=== PATIENT | female | born 1985 | race Caucasian/White ===

== ENCOUNTER → 2016-06-14 | Outpatient (CLI) | payer OTHER ==
[2016-06-15 07:45] LABS: ESTRADIOL <5.0 pg/mL (.); PROGESTERONE <0.1 ng/mL (.)
== END ==
LOC: OD 08:11
PROVIDERS: ATTEND Obstetrics & Gynecology Reproductive Endocrinology
DX: N97.9 Female infertility, unspecified (principal); E34.9 Endocrine disorder, unspecified
CPT/HCPCS: 36415; 82670; 84144

== ENCOUNTER → 2016-06-22 | Outpatient (CLI) | payer BC ==
[2016-06-24 03:19] LABS: ESTRADIOL 262.2 pg/mL (.); PROGESTERONE <0.1 ng/mL (.)
== END ==
LOC: OD 09:28
PROVIDERS: ATTEND Obstetrics & Gynecology Reproductive Endocrinology
DX: N97.9 Female infertility, unspecified (principal); E34.9 Endocrine disorder, unspecified
CPT/HCPCS: 36415; 82670; 84144

== ENCOUNTER → 2016-06-27 | Outpatient (CLI) | payer BC | LOC: OD 16:45 | PROVIDERS: ATTEND Obstetrics & Gynecology Reproductive Endocrinology | DX: E34.9 Endocrine disorder, unspecified (principal); N97.9 Female infertility, unspecified | CPT/HCPCS: 36415; 82670; 84144 ==